=== PATIENT | female | born 1950 ===

== ENCOUNTER 2017-09-24 15:58 | Outpatient (CLI) | payer MEDICARE | END 2017-09-24 15:59 | disposition home or self-care (01) | LOC: BICULT 15:58 | PROVIDERS: ATTEND Internal Medicine | DX: R10.2 Pelvic and perineal pain (principal) | CPT/HCPCS: 76857 ==

== ENCOUNTER 2019-03-17 09:22 | Outpatient (CLI) | payer MEDICARE ==
--- NOTE | 2019-03-17 10:16 | MRI ---
MRI LUMBAR SPINE NONCONTRAST: HISTORY: Lower extremity numbness. COMPARISON: None. FINDINGS: Conus medullaris is normal in morphology and terminates at the L1-2 level. Generalized marrow heterogeneity indicates degenerative process. There are multilevel Schmorl's nodes . Multilevel bilateral facet osteoarthritis is present. Incidental note of small cysts involving the imaged right kidney. L1-2:Disc osteophyte complex results in mild narrowing of the central canal, when combined with facet hypertrophy. No significant foraminal stenosis. L2-3:Mild central canal stenosis due to broad-based disc osteophyte and bilateral facet hypertrophy. Mild bilateral neural foraminal stenosis present. L3-4:Mild central canal stenosis as result of broad-based disc osteophyte and bilateral facet hypertr ophy. Mild bilateral neural foraminal narrowing. L4-5:Left subarticular disc protrusion superimposed upon broad-based disc osteophyte. There is mild c entral canal stenosis. Crowding of the bilateral traversing L5 nerve roots, and mild to moderate bilateral neural foraminal stenosis. L5-S1:Central disc protrusion is superimposed upon disc osteophyte with mild effacement of ventral th ecal sac. There is moderate left and mild right neural foraminal stenosis. IMPRESSION: Multilevel degenerative change of the lumbar spine, as outlined above. Transcribed Date/Time: 03/17/2019 10:42 AM
== END 2019-03-17 09:23 | disposition home or self-care (01) ==
LOC: BICMRI 09:22
PROVIDERS: ATTEND Orthopaedic Surgery
DX: R20.0 Anesthesia of skin (principal); M47.816 Spondylosis without myelopathy or radiculopathy, lumbar region
CPT/HCPCS: 72148